=== PATIENT | female | born 1990 | race Caucasian/White ===

== ENCOUNTER 2018-02-11 03:50 | Emergency (ER) | payer SELFPAY ==
[2018-02-11 04:01] VITALS: BP 121/70
--- NOTE | 2018-02-11 04:52 | RADIOLOGY REPORT (SQ) ---
EXAM DESCRIPTION: XR ANKLE 3 OR MORE VIEWS COMPLETED DATE/TME: 02/11/2018 04:15 CLINICAL HISTORY: 27 years Female, fall, pain COMPARISON: None. Findings: Moderate lateral swelling. Chronic ossicular calcification measures 1.4 cm at the dorsal aspect of the proximal right forefoot.. Bones, joints, and soft tissues of the RIGHT XR ANKLE 3 OR MORE VIEWS appear otherwise intact. IMPRESSION: Swelling.
[2018-02-11] MEDS ORDERED: IBUPROFEN 600 MG TABLET PO ONE (05:08)
[2018-02-11] MEDS ORDERED: HYDROCODONE/ACETAMINOPHEN 5-325 MG (6 TAB/ER DISP) PO PRN (05:08)
--- NOTE | 2018-02-11 05:12 | ER Document Report ---
HPI - HPI Pain Level: 5 Notes: Patient is a 27-year-old female who presents with chief complaint of right ankle pain after she reports that she twisted her ankle while walking down some stairs. Patient is able to bear weight. - REPRODUCTIVE Reproductive: DENIES: : - MUSCULOSKELETAL Musculoskeletal: REPORTS: Extremity pain - right ankle Past Medical History - General Information source: Patient - Social History Smoking Status: Never Smoker Frequency of alcohol use: Occasional Drug Abuse: None Family History: Reviewed & Not Pertinent Patient has suicidal ideation: No Patient has homicidal ideation: No - Medical History Medical History: Negative Renal/ Medical History: Denies: Hx Peritoneal Dialysis Past Surgical History: Reports: Hx Section - Immunizations Hx Diphtheria, Pertussis, Tetanus Vaccination: Yes - pt refused Vertical Provider Document - CONSTITUTIONAL Notes: PHYSICAL EXAMINATION: GENERAL: Well-appearing, well-nourished and in no acute distress. HEAD: Atraumatic, normocephalic. EYES: Pupils equal round extraocular movements intact, conjunctiva are normal. ENT: Nares patent NECK: Normal range of motion LUNGS: No respiratory distress Musculoskeletal: Normal range of motion, mild swelling noted to right ankle on the medial aspect. No ecchymosis noted. NEUROLOGICAL: Normal speech, normal gait. PSYCH: Normal mood, normal affect. SKIN: Warm, Dry, normal turgor, no rashes or lesions noted. - INFECTION CONTROL TRAVEL OUTSIDE OF THE [place] IN LAST 30 DAYS: No Course - Re-evaluation Re-evalutation: X-ray is negative for any acute findings. Patient will be placed in a ankle stirrup splint for comfort and be given crutches. Patient will follow up with her primary care provider or orthopedics if not improving over the next several days. - Vital Signs Vital signs: Temp Pulse Resp BP Pulse Ox 97.5 F 72 20 121/70 99 02/11/18 03:51 02/11/18 03:51 02/11/18 03:51 02/11/18 03:51 02/11/18 03:51 Procedures - Immobilization Right ankle Pre-Proc Neuro Vasc Exam: Normal Immobilizer type: Vadim wrap, Ankle stirrup Performed by: PCT Post-Proc Neuro Vasc Exam: Normal Alignment checked and good: Yes Discharge - Discharge Clinical Impression: Ankle sprain Condition: Stable Disposition: HOME, SELF-CARE Additional Instructions: SPRAINED ANKLE: Your sprained ankle results from stretching or tearing of the ligaments which support the ankle. This usually results from twisting the foot inward and under. The ligaments will require time and protection in order to heal properly. Many ankle sprains are quite disabling, and should be taken seriously. The usual treatment for an ankle sprain is cold packs; protection with tape , splints, or wraps; elevation; and staying off the ankle for at least a day. As the ankle improves, you can walk IF it's not painful to bear weight. Sports are best postponed until healing is complete. More serious sprains usually require strengthening exercises after early healing. Your physician has assessed the seriousness of the ligament injury to your ankle. However, the treatment may change, depending on how your ankle progresses. If further exams were recommended, it is important that you follow through. Call the doctor if your foot becomes numb, painful, or severely swollen. ANKLE STIRRUP SPLINT: You are to use an ankle brace called a stirrup splint. This type of brace allows you to place greater stresses on the ankle without risk of re-injury, and is often used for more severe ankle injuries such as avulsion fractures and ligament ruptures. The splint can be worn over a sock or tape. For proper support, wear the splint with a shoe over it. It's important that the splint fit properly. Adjust the heel tension, if needed. If your splint has air bladders, peel back the bottom of each air bladder, then move the Velcro attachment of the heel strap up or down. Air bladder pressure can be adjusted by pulling up the valve at the top, threading the air tube down into the main bladder, then blowing air into the bladder or squeezing it out. The two sides of the stirrup can be moved forward or back on your ankle by changing the attachment of the main straps. If you are unable to use the ankle comfortably in the splint, return for re -evaluation. VADIM WRAP: A compression dressing (vadim wrap) has been placed. This helps hold the area still. It limits swelling and internal bleeding. The wrap should be comfortably snug -- not tight. You should feel a sense of pressure, but not severe pain under the wrap. Unless the physician tells you otherwise, you can adjust the wrap for comfort. If the wrap causes symptoms suggesting it's too tight -- uncomfortable pressure, swelling or discoloration beyond the wrap, numbness, or severe pain - - you must loosen the wrap. If these symptoms don't resolve promptly, return for re-evaluation. USE OF [id number] IBUPROFEN: Ibuprofen (Advil, Nuprin, Medipren, Motrin IB) is a medication for fever and pain control. In addition, it has anti- inflammatory effects which may be beneficial, especially in the treatment of injuries. It's best to take ibuprofen with food. Persons with ulcer disease or allergy to aspirin should notify their physician of this before taking ibuprofen. Ibuprofen can be given every four to six hours, for a total of four doses daily. Age Pain or fever dose Antiinflammatory dose 15-adult 400 mg (2 tab) 600 mg (3 tab) ORAL NARCOTIC MEDICATION: You have been given a prescription for pain control. This medication is a narcotic. It's best taken with food, as nausea can result if taken on an empty stomach. Don't operate machinery or drive within six hours of taking this medication. Do not combine this medicine with alcohol, or with any medication which can cause sedation (such as cold tablets or sleeping pills) unless you get permission from the physician. Narcotics tend to cause constipation. If possible, drink plenty of fluids and eat a diet high in fiber and fruits. Please be aware that prescription narcotics also have the potential for abuse. People become addicted to these medications because of the general sense of wellbeing that they induce. This feeling along with a significant reduction in tension, anxiety, and aggression provides a stimulating seductive quality to these drugs. Once your pain is under control, we encourage you to discard your unused narcotics. FOLLOW-UP CARE: If you have been referred to a physician for follow-up care, call the physician s office for an appointment as you were instructed or within the next two days. If you experience worsening or a significant change in your symptoms, notify the physician immediately or return to the Emergency Department at any time for re-evaluation. Prescriptions: Hydrocodone/Acetaminophen [Hydrocodon-Acetaminophen 5-325] 1 each PO Q4H PRN # 10 tablet PRN Reason: For Pain
== END 2018-02-11 05:32 | disposition home or self-care (01) ==
LOC: ER 03:50
PROC: 2W3QX1Z Immobilization of Right Lower Leg using Splint (ICD-10-PCS; principal; 2018-02-11)
DX: M25.571 Pain in right ankle and joints of right foot (principal); X50.1XXA Overexertion from prolonged static or awkward postures, initial encounter
CPT/HCPCS: 99283; 73610; 29515; L1902

== ENCOUNTER 2018-03-09 09:57 | Emergency (ER) | payer SELFPAY ==
[2018-03-09 10:02] VITALS: BP 128/85
--- NOTE | 2018-03-09 10:48 | ER Document Report ---
ED General - General Chief Complaint: Ankle Pain Stated Complaint: ANKLE INJURY Time Seen by Provider: 03/09/18 10:31 Notes: Patient is a 27-year-old female that presents to the emergency department for chief complaint of right ankle pain. Patient reports that approximately 3 weeks ago she had a significant ankle injury, where she had an inversion, after stepping off of a patio, she was seen at that time, diagnosed with ankle sprain , discharged home within ankle brace, which she wore for about 1 week. She states that she continues to have some swelling and pain associated, particularly over the medial aspect of the ankle and extends laterally. She also feels a "pop" in the right ankle occasionally when she is walking, which concerned her. She did not follow-up with orthopedics or primary care physician. She did take Motrin prior to ED arrival, she currently rates the pain in the ankle as a 3 out of 10, as an aching sensation, worse with walking. Past Medical History: Denies chronic medical conditions Past Surgical History: Social History: Admits to smoking cigarettes, denies alcohol or drug use Family History: Reviewed and noncontributory for presenting illness Allergies: Reviewed, see documented allergy list. REVIEW OF SYSTEMS: Unless otherwise stated in this report the patient's positive and negative responses for review of systems for constitutional, eyes, ENT, cardiovascular, respiratory, gastrointestinal, neurological, genitourinary, musculoskeletal, and integumentary systems and related systems to the presenting problem are either as stated in the HPI or were not pertinent or were negative for the symptoms and/or complaints related to the presenting medical problem. PHYSICAL EXAMINATION: Vital signs reviewed, nursing noted reviewed. GENERAL: Well-appearing, well-nourished and in no acute distress. HEAD: Atraumatic, normocephalic. EYES: Eyes appear normal, extraocular movements intact, sclera anicteric, conjunctiva are normal. ENT: nares patent, oropharynx clear without exudates. Moist mucous membranes. NECK: Normal range of motion, supple without lymphadenopathy LUNGS: Breath sounds clear to auscultation bilaterally and equal. No wheezes rales or rhonchi. HEART: Regular rate and rhythm without murmurs ABDOMEN: Soft, nontender, normoactive bowel sounds. No rebound, guarding, or rigidity. No masses appreciated. EXTREMITIES: Right ankle:, There is mild edema associated, no ecchymosis, mild tenderness to palpation over the anterior talofibular ligament, as well as over the medial malleolus, the ankle was otherwise stable. Neurovascularly intact distally. Rest the patient's extremity exam, is grossly unremarkable, good range of motion, no pitting or edema. NEUROLOGICAL: No focal neurological deficits. Moves all extremities spontaneously Motor and sensory grossly intact on exam. PSYCH: Normal mood, normal affect. SKIN: Warm, Dry, normal turgor, no rashes or lesions noted on exposed skin TRAVEL OUTSIDE OF THE [place] IN LAST 30 DAYS: No - Related Data Allergies/Adverse Reactions: No Known Allergies Allergy (Verified 03/09/18 09:58) Past Medical History - Social History Smoking Status: Current Every Day Smoker Chew tobacco use (# tins/day): No Frequency of alcohol use: None Drug Abuse: None Family History: Reviewed & Not Pertinent Patient has suicidal ideation: No Patient has homicidal ideation: No Renal/ Medical History: Denies: Hx Peritoneal Dialysis Past Surgical History: Reports: Hx Section - Immunizations Hx Diphtheria, Pertussis, Tetanus Vaccination: Yes - pt refused Physical Exam - Vital signs Vitals: Temp Pulse Resp BP Pulse Ox 98.5 F 95 14 128/85 H 98 03/09/18 10:00 03/09/18 10:00 03/09/18 10:00 03/09/18 10:03/09/18 10:00 Course - Re-evaluation Re-evalutation: Patient seen and examined vital signs reviewed. Patint was evaluated and treated as appropriate for the patient's presenting symptoms and complaint, with consideration of any critical or life threatening conditions that may be associated with their obtained history and exam as noted above. Patient was offered Tylenol, states she was okay and did not need any medication at this time, x-rays of the right ankle were obtained to evaluate for possible missed fracture from prior imaging. The patient was re-evaluated and was stable Evaluation was most consistent with avulsion fracture of the right ankle, over the medial malleolus, results were discussed with the patient, this will need splinting, I discussed with her Ortho-Glass splinting, which she declined, stating that she would not be able to do her daily activities of living, and she did not want crutches, at this point to have some kind of splinting I offered her an ankle stirrup which she agreed to, advised to follow-up with orthopedics, she will need a walking boot to help this heal properly, which patient agreed to do. She will be prescribed with naproxen to take for pain. Plan of care was discussed with the patient at this point, after careful consideration I feel that that patient can be discharged from the emergency department, the patient was educated treatments and reasons to return to the emergency department based on their presumed diagnosis as noted above, they were advised to followup with a primary care physician in 2-3 days. Patient was agreeable to plan of care. *Note is created using voice recognition software and may contain spelling, syntax or grammatical errors. Ankle X-Ray 03/09/18 10:48 IMPRESSION: There is a linear calcific density adjacent to the medial malleolus which could conceivably represent an avulsion type fracture. No other evidence for fracture is seen. Soft tissue swelling is again identified. Other findings as noted above - Vital Signs Vital signs: Temp Pulse Resp BP Pulse Ox 98.5 F 95 14 128/85 H 98 03/09/18 10:00 03/09/18 10:00 03/09/18 10:00 03/09/18 10:00 03/09/18 10:00 Discharge - Discharge Clinical Impression: Avulsion fracture of ankle Qualifiers: Encounter type: initial encounter Fracture type: closed Laterality: right Qualified Code(s): S82.891A - Other fracture of right lower leg, initial encounter for closed fracture Condition: Stable Disposition: HOME, SELF-CARE Instructions: Avulsion Fracture of the Ankle ([facility]) Prescriptions: Naproxen 500 mg PO Q12H PRN #30 tablet PRN Reason: ankle pain Referrals: KAMLA LOWERY MD [ACTIVE STAFF] - Follow up in 3-5 days (orthopedics)
--- NOTE | 2018-03-09 11:25 | RADIOLOGY REPORT (SQ) ---
EXAM DESCRIPTION: ANKLE RIGHT COMPLETE COMPLETED DATE/TIME: 03/09/2018 11:08 am REASON FOR STUDY: right ankle pain, injury COMPARISON: 02/11/2018 NUMBER OF VIEWS: Three views. TECHNIQUE: AP, lateral, and oblique radiographic images acquired of the right ankle. LIMITATIONS: None. FINDINGS: MINERALIZATION: Normal. BONES: There is a linear calcific density adjacent to the medial malleolus which could conceivably re present an avulsion type fracture. No other evidence for fracture is seen. JOINTS: No effusions. SOFT TISSUES: Soft tissue swelling is again identified. OTHER: No other significant finding. IMPRESSION: There is a linear calcific density adjacent to the medial malleolus which could conceiva abhishek represent an avulsion type fracture. No other evidence for fracture is seen. Soft tissue swelli ng is again identified. Other findings as noted above TECHNICAL DOCUMENTATION: JOB ID: [id number] [email or web address]- All Rights Reserved Reading location - IP/workstation name: [email or web address]
== END 2018-03-09 12:04 | disposition home or self-care (01) ==
LOC: ER 09:57
DX: S82.891A Other fracture of right lower leg, initial encounter for closed fracture (principal); X50.0XXA Overexertion from strenuous movement or load, initial encounter; F17.210 Nicotine dependence, cigarettes, uncomplicated
CPT/HCPCS: 99283; 73610; L4350

== ENCOUNTER 2018-11-29 13:04 | Emergency (ER) | payer SELFPAY ==
--- NOTE | 2018-11-29 13:35 | ER Document Report ---
Addendum entered and electronically signed by ELMER LARSON PA-C 11/29/18 13:37: Course - Re-evaluation Re-evalutation: 11/29/18 13:37 No vaginal discharge/odor/bleeding. - Vital Signs Vital signs: Temp Pulse Resp BP Pulse Ox 98.1 F 98 20 154/101 H 96 11/29/18 13:13 11/29/18 13:13 11/29/18 13:13 11/29/18 13:13 11/29/18 13:13 Original Note: ED Medical Screen (RME) - General Chief Complaint: Abdominal Pain Stated Complaint: ABDOMINAL PAIN Time Seen by Provider: 11/29/18 13:29 TRAVEL OUTSIDE OF THE [place] IN LAST 30 DAYS: No - HPI Notes: 11/29/18 13:32 Patient is a 27-year-old female (1 set of twins) who is approximately 5 weeks who presents for 2 complaints. The first is intermittent right lower pelvic pain that she notices only when she coughs or moves suddenly without any obvious bulging. She has had a history of . Patient is also complaining of left lower leg swelling over the past few days without precipitating event or significant pain. Pt concerned for possible clot. Denies drug allergies. + smoker. Denies any prolonged immobilization, distance travel, recent surgery/trauma, personal cancer history, hormone use, or previous DVT/PE. Denies WEEKS, fever, neck pain, URI, CP, SOB, dysuria, back pain, or rash. I have treated and performed a rapid initial assessment of this patient. A comprehensive ED assessment and evaluation of the patient, analysis of test results and completion of medical decision making process will be conducted by additional ED providers. PHYSICAL EXAMINATION: GENERAL: Well-appearing, well-nourished and in no acute distress. A&Ox4. Answers questions appropriately. LUNGS: Breath sounds clear to auscultation bilaterally and equal. No wheezes rales or rhonchi. HEART: Regular rate and rhythm without murmurs, rubs, gallops. ABDOMEN: Soft, nondistended abdomen. No guarding, no rebound. Normal bowel sounds present. No CVA tenderness bilaterally. + mild rt lower pelvic tenderness (cannot elicit thorough abd exam w/o bed, however). Extremities: Trace pitting edema Rt LE. 1+ left LE. Left leg is slightly larger distally and at the ankle/foot. No bony tenderness or calf tenderness. N/V intact distal with 2+ pulses. NEUROLOGICAL: Normal speech, normal gait. PSYCH: Normal mood, normal affect. - Related Data Allergies/Adverse Reactions: No Known Allergies Allergy (Verified 03/09/18 09:58) Past Medical History Renal/ Medical History: Denies: Hx Peritoneal Dialysis Past Surgical History: Reports: Hx Section - Immunizations Hx Diphtheria, Pertussis, Tetanus Vaccination: Yes - pt refused Physical Exam - Vital signs Vitals: Temp Pulse Resp BP Pulse Ox 98.1 F 98 20 154/101 H 96 11/29/18 13:13 11/29/18 13:13 11/29/18 13:13 11/29/18 13:13 11/29/18 13:13 Course - Vital Signs Vital signs: Temp Pulse Resp BP Pulse Ox 98.1 F 98 20 154/101 H 96 11/29/18 13:13 11/29/18 13:13 11/29/18 13:13 11/29/18 13:13 11/29/18 13:13
[2018-11-29 14:05] LABS: ABSOLUTE BASOPHILS # (AUTO) 0.1 10^3/uL (0.0-0.2); ABSOLUTE EOSINOPHILS # (AUTO) 0.2 10^3/uL (0.0-0.6); ABSOLUTE LYMPHOCYTES (AUTO) 2.1 10^3/uL (0.5-4.7); ABSOLUTE MONOCYTES (AUTO) 0.6 10^3/uL (0.1-1.4); ABSOLUTE NEUT (AUTO) 9.3 10^3/uL (1.7-8.2); BASOPHILS % (AUTO) 0.8 % (0-2); EOSINOPHILS % (AUTO) 1.5 % (0-6); HEMATOCRIT 39.4 % (36.0-47.0); HEMOGLOBIN 13.4 g/dL (12.0-15.5); LYMPHOCYTES % (AUTO) 17.2 % (13-45); MEAN CORPUSCULAR HEMOGLOBIN 29.7 pg (27.0-33.4); MEAN CORPUSCULAR VOLUME 87 fl (80-97); MONOCYTES % (AUTO) 4.9 % (3-13); PLATELET COUNT 278 10^3/uL (150-450); RED BLOOD COUNT 4.51 10^6/uL (3.72-5.28); RED CELL DISTRIBUTION WIDTH 13.7 % (11.5-14.0); SEGMENTED NEUTROPHILS % (AUTO) 75.6 % (42-78); TOTAL CELLS COUNTED % (AUTO) 100 %; WHITE BLOOD COUNT 12.2 10^3/uL (4.0-10.5)
[2018-11-29 14:21] LABS: ALANINE AMINOTRANSFERASE 40 U/L (9-52); ALBUMIN 3.9 g/dL (3.5-5.0); ALKALINE PHOSPHATASE 71 U/L (38-126); ANION GAP 8 (5-19); ASPARTATE AMINO TRANSFERASE 27 U/L (14-36); BILIRUBIN,DIRECT 0.2 mg/dL (0.0-0.4); BILIRUBIN,TOTAL 0.2 mg/dL (0.2-1.3); BLOOD UREA NITROGEN 9 mg/dL (7-20); CALCIUM 9.8 mg/dL (8.4-10.2); CARBON DIOXIDE 25 mmol/L (22-30); CHLORIDE 104 mmol/L (98-107); GLUCOSE 108 mg/dL (75-110); POTASSIUM 4.2 mmol/L (3.6-5.0); SODIUM 137.2 mmol/L (137-145); TOTAL PROTEIN 6.8 g/dL (6.3-8.2)
[2018-11-29 14:26] LABS: APPEARANCE,URINE SLIGHTLY-CLOUDY; BILIRUBIN,URINE NEGATIVE (NEGATIVE); COLOR,URINE YELLOW; GLUCOSE, URINE NEGATIVE (NEGATIVE); KETONES,URINE NEGATIVE (NEGATIVE); LEUKOCYTE ESTERASE,URINE NEGATIVE (NEGATIVE); NITRITE,URINE NEGATIVE (NEGATIVE); PROTEIN,URINE NEGATIVE (NEGATIVE); URINE SPECIFIC GRAVITY 1.006; UROBILINOGEN,URINE NEGATIVE mg/dL (<2.0)
--- NOTE | 2018-11-29 14:53 | RADIOLOGY REPORT (SQ) ---
EXAM DESCRIPTION: U/S OB TRANSVAG W/DOPPLER COMPLETED DATE/TIME: 11/29/2018 2:30 pm REASON FOR STUDY: approx 5 wks, rt lower abd/pelv pain COMPARISON: None. TECHNIQUE: Transvaginal and transabdominal static and realtime grayscale images acquired of the pelv is. Additional selected spectral and color Doppler images recorded. All images stored on PACs. bHCG: Pending. CLINICAL DATES: LMP 10/23/2018. 5 weeks 2 days LIMITATIONS: None. FINDINGS: FETUS: pole is not seen. ULTRASOUND EGA: 5 weeks 5 days based upon questionable gestational sac. ULTRASOUND JOSE: 07/27/2019 EFW: Not applicable less than 20 weeks. CRL: pole is not seen. FHR: pole is not seen. Beats per minute. SURVEY: Too early to assess. AMNIOTIC FLUID: Adequate amount. PLACENTA: Not yet developed due to early gestation. SUBCHORIONIC BLEED: No SIZE OF BLEED: Not applicable. UTERUS: Possible 3.9 cm fibroid. CERVICAL LENGTH: 3.6 cm. Closed. RIGHT ADNEXA: Normal ovary with normal vascular flow. 3.7 x 3.6 x 2.9 cm. No adnexal free fluid. No adnexal masses. LEFT ADNEXA: Ovary not seen. No adnexal free fluid. No adnexal masses. FREE FLUID: None. OTHER: No other significant finding. IMPRESSION: Questionable intrauterine gestational sac of 5 weeks 5 days size. pole is not see n. Follow-up as clinically indicated. TECHNICAL DOCUMENTATION: JOB ID: [id number] [email or web address]- All Rights Reserved Reading location - IP/workstation name: [email or web address]
--- NOTE | 2018-11-29 15:09 | RADIOLOGY REPORT (SQ) ---
EXAM DESCRIPTION: VENOUS UNILATERAL LOWER COMPLETED DATE/TIME: 11/29/2018 3:00 pm REASON FOR STUDY: Lt LE edema COMPARISON: None. TECHNIQUE: Dynamic and static macdonald scale and color images acquired of both lower extremity venous sy stems. Selected spectral images acquired with additional compression and augmentation maneuvers. Imag es stored on PACS. LIMITATIONS: None. FINDINGS: RIGHT LEG COMMON FEMORAL AND FEMORAL: Normal phasicity, compression and augmentation. No visualized echogenic m aterial on macdonald scale. No defects on color images. POPLITEAL: Normal compression and augmentation. No visualized echogenic material on macdonald scale. No de fects on color images. CALF VESSELS: Normal compression and augmentation. No visualized echogenic material on macdonald scale. No defects on color image. GSV AND SSV: Normal compression. No visualized echogenic material on macdonald scale. No defects on color images. ANY DEEP VENOUS INSUFFICIENCY: Not evaluated. ANY EVIDENCE OF POPLITEAL CYST: No. OTHER: No other significant finding. LEFT LEG COMMON FEMORAL AND FEMORAL: Normal phasicity, compression and augmentation. No visualized echogenic m aterial on macdonald scale. No defects on color images. POPLITEAL: Normal compression and augmentation. No visualized echogenic material on macdonald scale. No de fects on color images. CALF VESSELS: Normal compression and augmentation. No visualized echogenic material on macdonald scale. No defects on color images. GSV AND SSV: Normal compression. No visualized echogenic material on macdonald scale. No defects on color images. ANY DEEP VENOUS INSUFFICIENCY: Not evaluated. ANY EVIDENCE POPLITEAL CYST: No. OTHER: No other significant finding. IMPRESSION: NO EVIDENCE DVT OR SVT IN EITHER LEG. TECHNICAL DOCUMENTATION: JOB ID: [id number] [employer]- All Rights Reserved Reading location - IP/workstation name: [email or web address]
--- NOTE | 2018-11-29 16:01 | ER Document Report ---
HPI - HPI Time Seen by Provider: 11/29/18 13:29 Pain Level: 0 Notes: Patient is a 27-year-old female (1 set of twins) who is approximately 5 weeks who presents for 2 complaints. The first is intermittent right lower pelvic pain that she notices only when she coughs or moves suddenly without any obvious bulging. She has had a history of . Patient is also complaining of left lower leg swelling over the past few days without precipitating event or significant pain. Pt concerned for possible clot. Denies drug allergies. + smoker. No vaginal discharge/odor/bleeding. Denies any prolonged immobilization, distance travel, recent surgery/trauma, personal cancer history, hormone use, or previous DVT/PE. Denies WEEKS, fever, neck pain, URI, CP, SOB, dysuria, back pain, or rash. - ROS Systems Reviewed and Negative: Yes All other systems reviewed and negative - REPRODUCTIVE LMP: 10/23/18 Reproductive: REPORTS: : Past Medical History - Social History Smoking Status: Current Every Day Smoker Chew tobacco use (# tins/day): No Frequency of alcohol use: None Drug Abuse: None Family History: Reviewed & Not Pertinent Patient has suicidal ideation: No Patient has homicidal ideation: No Renal/ Medical History: Denies: Hx Peritoneal Dialysis Past Surgical History: Reports: Hx Section - Immunizations Hx Diphtheria, Pertussis, Tetanus Vaccination: Yes - pt refused Vertical Provider Document - CONSTITUTIONAL Agree With Documented VS: Yes Notes: PHYSICAL EXAMINATION: GENERAL: Well-appearing, well-nourished and in no acute distress. A&Ox4. Answers questions appropriately. LUNGS: Breath sounds clear to auscultation bilaterally and equal. No wheezes rales or rhonchi. HEART: Regular rate and rhythm without murmurs, rubs, gallops. ABDOMEN: Soft, nondistended abdomen. No guarding, no rebound. Normal bowel sounds present. No CVA tenderness bilaterally. + mild rt lower pelvic tenderness (cannot elicit thorough abd exam w/o bed, however). Extremities: Trace pitting edema Rt LE. 1+ left LE. Left leg is slightly larger distally and at the ankle/foot. No bony tenderness or calf tenderness. N/V intact distal with 2+ pulses. NEUROLOGICAL: Normal speech, normal gait. PSYCH: Normal mood, normal affect. - INFECTION CONTROL TRAVEL OUTSIDE OF THE [place] IN LAST 30 DAYS: No Course - Re-evaluation Re-evalutation: 11/29/18 15:[address] Schwab: He would like labetolol for BP. Needs to f/u with PCM and monitor BP. Patient is an afebrile, well-hydrated, 27-year-old female who presents to the ED with ? but probable early intrauterine as well as probable venous insufficiency with LE edema. Vitals are acceptable without any significant tachycardia, tachypnea, or hypoxia. PE is otherwise unremarkable. CBC, CMP unremarkable for acute pathology. HCG at 6447. TVUS shows evidence of the gest sac w/o pole measuring approx 5wk 5 days. UA unremarkable. Venous doppler unremarkable. Patient is nontoxic-appearing is tolerating p.o. without any difficulties. No other labs or imaging warranted at this time based on H&P. Low suspicion/risk for acute appendicitis, bowel obstruction, acute cholecystitis, acute cholangitis, perforated diverticulitis, incarcerated h ernia, pancreatitis, perforated ulcer, peritonitis, sepsis, pelvic inflammatory disease, ectopic , tubo-ovarian abscess, ovarian torsion, or other systemic emergent condition at this time. Patient is aware that her condition can change from initial presentation and she needs to monitor symptoms closely and seek medical attention if any acute changes. Conservative measures otherwise for symptoms. Recheck with your PCM/OBGYN in 3-5 days. Return to the ED with any worsening/concerning symptoms otherwise as reviewed in discharge. Patient is in agreement. - Vital Signs Vital signs: Temp Pulse Resp BP Pulse Ox 98.1 F 98 20 154/101 H 96 11/29/18 13:13 11/29/18 13:13 11/29/18 13:13 11/29/18 13:13 11/29/18 13:13 - Laboratory Result Diagrams: 11/29/18 13:48 11/29/18 13:48 Laboratory results interpreted by me: 11/29/18 11/29/18 13:48 13:48 WBC 12.2 H Absolute Neutrophils 9.3 H Beta HCG, Quant 6447.30 H Discharge - Discharge Clinical Impression: Early stage of , Bilateral lower extremity edema, Elevated blood pressure reading Condition: Stable Disposition: HOME, SELF-CARE Additional Instructions: Maintain fluid intake Proper hygienic technique Elevate legs, compression stockings Healthy diet Monitor blood pressure closely Keep the skin clean Tylenol as needed F/u with your PCM/OBGYN in 3-5 days for a recheck Return to the ED with any development of WEEKS/fever, trouble with vision, eye redness, worsening pain, urethral discharge, urinary retention, blood in the u rine, flank pain, abdominal pain, n/v, Chest Pain, shortness of breath, joint pains, trouble breathing, or any other worsening/concerning symptoms as needed otherwise. Prescriptions: Labetalol HCl 100 mg PO BID #60 tablet Forms: Elevated Blood Pressure Referrals: [facility] [Provider Group] - Follow up in 3-5 days
[2018-11-29 16:33] VITALS: BP 148/74
== END 2018-11-29 16:33 | disposition home or self-care (01) ==
LOC: ER 13:04
DX: O26.91 Pregnancy related conditions, unspecified, first trimester (principal); R03.0 Elevated blood-pressure reading, without diagnosis of hypertension; O12.01 Gestational edema, first trimester; O99.331 Smoking (tobacco) complicating pregnancy, first trimester; Z3A.01 Less than 8 weeks gestation of pregnancy
CPT/HCPCS: 36415; 76817; 80053; 81001; 84702; 85025; 93971; 93976; 99284

== ENCOUNTER → 2018-12-09 | Outpatient (CLI) | payer MEDICAID ==
--- NOTE | 2018-12-09 16:21 | RADIOLOGY REPORT (SQ) ---
EXAM DESCRIPTION: U/S [id number] TRNABD 1GES W/ODOP COMPLETED DATE/TIME: 12/09/2018 2:43 pm REASON FOR STUDY: Z34.91 ENCNTR FOR SUPRVSN OF NORMAL PREG, UNSP, FIRST TRIMESTER Z34.91 ENCNTR FOR SUPRVSN OF NORMAL PREG, UNSP, FIRST TRIMES COMPARISON: None. TECHNIQUE: Transvaginal and transabdominal static and realtime grayscale images acquired of the pelv is. Additional selected spectral and color Doppler images recorded. All images stored on PACs. bHCG: Not available. CLINICAL DATES: LMP 10/23/2018. 6 weeks 5 days. LIMITATIONS: None. FINDINGS: FETUS: Single Living intrauterine . ULTRASOUND EGA: 6 weeks 2 days. ULTRASOUND JOSE: 08/02/2019 EFW: Not applicable less than 20 weeks. CRL: 0.53 cm. FHR: 131 beats per minute. SURVEY: Too early to assess. AMNIOTIC FLUID: Adequate amount. PLACENTA: Not yet developed due to early gestation. SUBCHORIONIC BLEED: Yes SIZE OF BLEED: 1.7 x 1.3 x 1.5 cm. UTERUS: No masses. No anomalies. CERVICAL LENGTH: 2.9 cm. Closed. RIGHT ADNEXA: Normal ovary with normal vascular flow. 3.3 x 3.5 x 3.4 cm. No adnexal free fluid. No adnexal masses. LEFT ADNEXA: Normal ovary with normal vascular flow. 4.1 x 3.2 x 1.8 cm. No adnexal free fluid. No adnexal masses. FREE FLUID: None. OTHER: No other significant finding. IMPRESSION: LIVING INTRAUTERINE . EGA 6 weeks 2 days. Trimester of : First - 0 to 13 weeks. TECHNICAL DOCUMENTATION: JOB ID: [id number] [employer]- All Rights Reserved rev Reading location - IP/workstation name: [email or web address]
== END ==
LOC: RAD 13:55
PROVIDERS: ATTEND Midwife
DX: Z34.91 Encounter for supervision of normal pregnancy, unspecified, first trimester (principal)
CPT/HCPCS: 76801

== ENCOUNTER 2019-03-19 04:59 | Emergency (ER) | payer MEDICAID ==
--- NOTE | 2019-03-19 05:28 | ER Document Report ---
ED Oral Problem - General Chief Complaint: Toothache Stated Complaint: TOOTHACHE Time Seen by Provider: 03/19/19 05:17 Primary Care Provider: SPENCER ARCHER CNM [Primary Care Provider] - Follow up as needed TRAVEL OUTSIDE OF THE [place] IN LAST 30 DAYS: No - HPI Notes: This is a 28-year-old female who presents today with a complaint of toothache for the past 8 days. Patient states that her dentist states that he cannot pull the tooth because it is too close to the other one. She is been referred to a neurosurgeon. She has been taking clindamycin for the past 5 days but still has some pain. Pain is worse with chewing. She denies any fever or chills. Describes her symptoms as moderate. - Related Data Allergies/Adverse Reactions: No Known Allergies Allergy (Verified 03/09/18 09:58) Past Medical History - Social History Smoking Status: Never Smoker Chew tobacco use (# tins/day): No Frequency of alcohol use: None Drug Abuse: None Family History: Reviewed & Not Pertinent Patient has suicidal ideation: No Patient has homicidal ideation: No Renal/ Medical History: Denies: Hx Peritoneal Dialysis Past Surgical History: Reports: Hx Section - Immunizations Hx Diphtheria, Pertussis, Tetanus Vaccination: Yes - pt refused Review of Systems - Review of Systems Constitutional: denies: Fever EENT: Dental problem. denies: Throat swelling, Mouth swelling Cardiovascular: denies: Chest pain -: Yes All other systems reviewed and negative Physical Exam - Vital signs Vitals: Temp Pulse Resp BP Pulse Ox 98.0 F 77 18 153/113 H 98 03/19/19 05:06 03/19/19 05:06 03/19/19 05:06 03/19/19 05:06 03/19/19 05:06 - General General appearance: Appears well, Alert - HEENT Head: Normocephalic, Atraumatic Eyes: Normal Pupils: PERRL Mouth/Lips: Caries - Patient has dental caries in the left Lateral incisor and premolar teeth. There is no significant adjacent gingival swelling. There is some tenderness to palpation. Course - Re-evaluation Re-evalutation: 03/19/19 05:26 Clinical picture is consistent with dental caries. Patient is on clindamycin. I have counseled her to finish her course of clindamycin. We will put her on something for her pain. She is stable for discharge. - Vital Signs Vital signs: Temp Pulse Resp BP Pulse Ox 98.0 F 77 18 153/113 H 98 03/19/19 05:06 03/19/19 05:06 03/19/19 05:06 03/19/19 05:06 03/19/19 05:06 Discharge - Discharge Clinical Impression: Dental caries Condition: Good Disposition: HOME, SELF-CARE Instructions: Toothache ([facility]) Additional Instructions: Follow-up as arranged with your dentist. Continue your antibiotics and make you finish the course. Prescriptions: Tramadol HCl [Ultram 50 mg Tablet] 50 mg PO Q6HP PRN #20 tablet PRN Reason: Pain Scale Of 3 Naproxen 500 mg PO BID PRN #14 tablet PRN Reason: Referrals: SPENCER ARCHER CNM [Primary Care Provider] - Follow up as needed
[2019-03-19] MEDS ORDERED: TRAMADOL HCL 50 MG TABLET PO ONE (05:30)
[2019-03-19] MEDS ORDERED: ACETAMINOPHEN WITH CODEINE #3 TABLET PO ONE (06:05)
[2019-03-19 06:15] VITALS: BP 151/83
== END 2019-03-19 06:15 | disposition home or self-care (01) ==
LOC: ER 04:59
DX: K02.9 Dental caries, unspecified (principal)
CPT/HCPCS: 99282

== ENCOUNTER 2019-03-19 17:19 | Emergency (ER) | payer MEDICAID ==
[2019-03-19] MEDS ORDERED: CLINDAMYCIN HCL 150 MG CAPSULE PO ONE (18:09)
--- NOTE | 2019-03-19 18:09 | ER Document Report ---
ED Medical Screen (RME) - General Chief Complaint: Toothache Stated Complaint: REVISIT/TOOTH,MOUTH PAIN, SWELLING Time Seen by Provider: 03/19/19 18:05 Mode of Arrival: Ambulatory Information source: Patient Notes: 28-year-old female presents to ED for dental pain she is 21 weeks . She was seen this morning and discharged home with a prescription for Tylenol threes. She told the provider at that time that she was taking clindamycin. She had some leftover clindamycin took her last dose last night. She states she does not have any more clindamycin. She states she was told that she needed to get oral surgeon. I explained to her to be in she may have a hard time finding a dentist and so she delivers the child. I have greeted and performed a rapid initial assessment of this patient. A comprehensive ED assessment and evaluation of the patient, analysis of test results and completion of medical decision making process will be conducted by an additional ED providers. TRAVEL OUTSIDE OF THE [place] IN LAST 30 DAYS: No - Related Data Allergies/Adverse Reactions: No Known Allergies Allergy (Verified 03/09/18 09:58) Past Medical History Renal/ Medical History: Denies: Hx Peritoneal Dialysis Past Surgical History: Reports: Hx Section - Immunizations Hx Diphtheria, Pertussis, Tetanus Vaccination: Yes - pt refused Physical Exam - Vital signs Vitals: Temp Pulse Resp BP Pulse Ox 97.8 F 99 18 154/103 H 100 03/19/19 17:25 03/19/19 17:25 03/19/19 17:25 03/19/19 17:25 03/19/19 17:25 Course - Vital Signs Vital signs: Temp Pulse Resp BP Pulse Ox 97.8 F 99 18 154/103 H 100 03/19/19 17:25 03/19/19 17:25 03/19/19 17:25 03/19/19 17:25 03/19/19 17:25
[2019-03-19] MEDS ORDERED: BUPIVACAINE HCL 0.5 % INJ/PF 30 ML SDV INJ ONE (18:52)
[2019-03-19] MEDS ORDERED: HYDROCODONE/ACETAMINOPHEN 5-325 MG (6 TAB/ER DISP) PO PRN (19:14)
--- NOTE | 2019-03-19 19:16 | ER Document Report ---
HPI - HPI Time Seen by Provider: 03/19/19 18:05 Pain Level: 5 Notes: Patient is a 28-year-old female presenting to the emergency department with chief complaint of dental pain. Patient reports she was here a few days ago but continues to have pain. She states that she is supposed to have 2 teeth extracted however due to her being she states no doctor oral surgeon will do surgery on her. She is complaining of pain at tooth #18 and tooth #12. - REPRODUCTIVE LMP: 10/23/18 Reproductive: REPORTS: : Past Medical History - General Information source: Patient - Social History Smoking Status: Never Smoker Chew tobacco use (# tins/day): No Frequency of alcohol use: None Drug Abuse: None Family History: Reviewed & Not Pertinent Patient has suicidal ideation: No Patient has homicidal ideation: No - Medical History Medical History: Negative Renal/ Medical History: Denies: Hx Peritoneal Dialysis Past Surgical History: Reports: Hx Section - Immunizations Hx Diphtheria, Pertussis, Tetanus Vaccination: Yes - pt refused Vertical Provider Document - CONSTITUTIONAL Notes: PHYSICAL EXAMINATION: GENERAL: Well-appearing, well-nourished and in no acute distress. HEAD: Atraumatic, normocephalic. EYES: Pupils equal round extraocular movements intact, conjunctiva are normal. ENT: Nares patent, poor dentition noted throughout, obvious cavity/hole in tooth at tooth #12 and 18. No surrounding erythema or evidence of abscess. NECK: Normal range of motion LUNGS: No respiratory distress Musculoskeletal: Normal range of motion NEUROLOGICAL: Normal speech, normal gait. PSYCH: Normal mood, normal affect. SKIN: Warm, Dry, normal turgor, no rashes or lesions noted. - INFECTION CONTROL TRAVEL OUTSIDE OF THE [place] IN LAST 30 DAYS: No Course - Re-evaluation Re-evalutation: Patient requesting dental block. This was performed with Sensorcaine. Patient reports significant improvement of pain after dental block was performed. I put a small amount of Sensorcaine just superior to tooth #12 and then performed an alveolar dental block behind tooth #17. Patient will follow-up with her dentist. Patient encouraged to continue taking her antibiotics. The patient's emergency department workup and current diagnosis were explained to the patient and or family. Follow-up instructions were provided. Medications if prescribed were discussed. Instructions for when to return to the emergency department including specific worrisome symptoms were discussed with the patient and/or family. - Vital Signs Vital signs: Temp Pulse Resp BP Pulse Ox 97.8 F 99 18 154/103 H 100 03/19/19 17:25 03/19/19 17:25 03/19/19 17:25 03/19/19 17:25 03/19/19 17:25 Discharge - Discharge Clinical Impression: Dental caries, Dental infection Condition: Stable Disposition: HOME, SELF-CARE Additional Instructions: A dental block was performed on your upper and lower jaw today in the emergency department. Please use pain medication for severe pain only, we will not be able to refill this. Take the antibiotics as prescribed. Try to get a second opinion with another dentist who may be able to help extract your teeth. Return to the emergency department with worsening symptoms such as significant fear facial swelling, development of fever or inability to swallow. Prescriptions: Clindamycin HCl 300 mg PO TID #30 capsule Forms: Return to Work
[2019-03-19 19:43] VITALS: BP 147/81
== END 2019-03-19 19:39 | disposition home or self-care (01) ==
LOC: ER 17:19
DX: K04.7 Periapical abscess without sinus (principal); K02.9 Dental caries, unspecified
CPT/HCPCS: 99282; 64400; J3490 ×2